=== PATIENT | female | born 1990 | race Caucasian/White ===

== ENCOUNTER 2018-09-27 16:49 | Emergency (ER) | payer OTHER ==
[~2018-09-27] VITALS: Ht 170.2 cm; Wt 74.8 kg
[~2018-09-27 16:49] MED LIST: CLEAR EYES REDN30 M1 OPHTHALMIC; HYDROCODONE-AP1 EAC6 PO; LOESTRIN1 EAC1 PO
[2018-09-27] MEDS ORDERED: SERTRALINE HCL50 MG PO (17:01)
[2018-09-27] MEDS ORDERED: QUETIAPINE FUM100 MG PO (17:01)
[2018-09-27] MEDS ORDERED: PRILOSEC 20 MG20 MG PO (17:42)
[2018-09-27 18:15] LABS: ABSOLUTE BASOPHILS 0.1 thou/uL (0.0-0.2); ABSOLUTE EOSINOPHILS 0.3 thou/uL (0.0-0.7); ABSOLUTE MONOCYTES 1.4 thou/uL (0.0-1.2); ABSOLUTE NEUTROPHILS 8.4 thou/uL (1.6-8.1); BASOPHILS 0.4 %; EOSINOPHILS 2.4 %; HEMATOCRIT 41.2 % (37.0-47.0); HEMOGLOBIN 14.2 gm/dL (12.0-15.0); LYMPHOCYTES 27.8 %; MCH 31.4 pg (26.0-34.0); MCHC 34.4 g/dL (28.0-37.0); MCV 91.2 fL (80.0-100.0); MONOCYTES 10.2 %; MPV 7.9 fl. (7.2-11.1); NUCLEATED RBCS 0 /100WBC; PLATELET COUNT* 470 thou/uL (150-400); POLYS 59.2 %; RBC 4.51 mil/uL (4.20-5.00); WBC 14.2 thou/uL (4.0-11.0)
[2018-09-27 18:33] LABS: ALKALINE PHOSPHATASE 89 U/L (46-116); ANION GAP 10 mmol/L (7-16); BUN 10 mg/dL (7-18); CALCIUM 9.7 mg/dL (8.5-10.1); CHLORIDE 102 mmol/L (98-107); CO2 30 mmol/L (21-32); CREATININE 0.9 mg/dL (0.6-1.3); GLUCOSE 87 mg/dL (70-99); POTASSIUM 3.6 mmol/L (3.5-5.1); SGOT 41 U/L (15-37); SGPT 86 U/L (30-65); SODIUM 142 mmol/L (136-145); TOTAL BILIRUBIN 0.7 mg/dL (<0.1-1.0); TOTAL PROTEIN 7.8 g/dL (6.4-8.2); TROPONIN-I LEVEL <0.06 ng/mL (<0.06)
[2018-09-27 19:28] LABS: URINE BILIRUBIN NEGATIVE (Negative); URINE BLOOD NEGATIVE (Negative); URINE CLARITY CLEAR; URINE COLOR YELLOW; URINE GLUCOSE-RANDOM NEGATIVE (Negative); URINE KETONES NEGATIVE (Negative); URINE LEUKOCYTES-REFLEX NEGATIVE (Negative); URINE NITRITE-REFLEX NEGATIVE (Negative); URINE PROTEIN NEGATIVE (Negative); URINE SPECIFIC GRAVITY <= 1.005 (1.005-1.030); URINE UROBILINOGEN 0.2 E.U./dl (0.2-1.0)
[2018-09-27] MEDS ORDERED: CARAFATE 1 GM TA1 G1 PO (20:14)
[2018-09-27 20:39] VITALS: BP 132/88
--- NOTE | 2018-09-28 10:13 | EKG ---
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 09/28/18 1013 10 10 Arturo Thompson MD, FAC /EPI
== END 2018-09-27 20:49 | disposition home or self-care (01) ==
LOC: M.ERS 16:49
PROVIDERS: Personal Emergency Response Attendant
DX: K27.9 Peptic ulcer, site unspecified, unspecified as acute or chronic, without hemorrhage or perforation (principal); R10.13 Epigastric pain

== ENCOUNTER 2019-08-14 00:54 | Emergency (ER) | payer OTHER ==
[~2019-08-14] VITALS: Ht 170.2 cm; Wt 56.7 kg
[~2019-08-14 00:54] MED LIST changes: +CARAFATE 1 GM TA1 G1 PO; +PRILOSEC 20 MG20 MG PO; +QUETIAPINE FUM100 MG PO; +SERTRALINE HCL50 MG PO
[2019-08-14 00:58] VITALS: BP 72/54
--- NOTE | 2019-08-14 13:57 | EKG ---
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1990 Requested By: Ryan Tracy Order Number: [id number] MD: Joesph Huntley Measurements Intervals [place] Rate: 127 P: 75 OR: 139 QRS: 66 QRSD: 103 T: 32 QT: 319 QTc: 464 Interpretive Statements Sinus tachycardia LAE, consider biatrial enlargement RSR' in V1 or V2, right VCD or RVH Artifact in lead(s) II,III,aVL,aVF,V1,V2,V4,V5,V6 No previous ECG available for comparison Electronically Signed On 08-14-2019 10:03:50 APPLICATION SUPPORT LEAD by Joesph Huntley [email or web address] <ELECTRONICALLY SIGNED> By: Joesph Huntley MD, [facility] 08/14/19 1003 4 Joesph Huntley MD, [facility] /EPI
== END 2019-08-14 01:39 | disposition home or self-care (01) ==
LOC: M.ERS 00:54
DX: J45.901 Unspecified asthma with (acute) exacerbation (principal)